=== PATIENT | female | born 1975 | race Hispanic/Latino ===

== ENCOUNTER 2017-10-03 13:50 | Emergency (ER) | payer BC ==
[2017-10-03 14:49] LABS: APPEARANCE,URINE CLOUDY (CLEAR); BILIRUBIN,URINE NEGATIVE (NEGATIVE); COLOR,URINE YELLOW (YELLOW); GLUCOSE, URINE (UA) NEGATIVE (NEGATIVE); KETONES,URINE 5 mg/dL (NEGATIVE); LEUKOCYTE ESTERASE ,URINE MODERATE (NEGATIVE); NITRATE,URINE POSITIVE (NEGATIVE); OCCULT BLOOD,URINE LARGE (NEGATIVE); PROTEIN,URINE >=300 (NEGATIVE)
[2017-10-03 14:57] LABS: BACTERIA,URINE Moderate /HPF (None Seen); WBC,URINE >100 /HPF (0-1)
[2017-10-03 14:58] LABS: RBC,URINE 26-50 /HPF (0-1)
[2017-10-03] MEDS ORDERED: CEFTRIAXONE SODIUM 1 GM ONE (15:16)
[2017-10-03] MEDS ORDERED: LIDOCAINE HCL-MPF 1% 2ML VIAL ONE (15:16)
== END 2017-10-03 15:24 | disposition home or self-care (01) ==
LOC: EDH 13:50
DX: N39.0 Urinary tract infection, site not specified (principal)
CPT/HCPCS: 81001; 96372; 99283; J0696; J3490

== ENCOUNTER 2021-12-27 09:46 | Observation (INO) | payer BC ==
[~2021-12-27] VITALS: Ht 162.6 cm; Wt 132.2 kg
[2021-12-27 10:22] LABS: BASOPHILS % (AUTO) 0.4 % (0.0-5.0); EOSINOPHILS % (AUTO) 2.1 % (0.0-8.0); HEMATOCRIT 41.7 % (36-48); LYMPHOCYTES % (AUTO) 24.2 % (21.0-51.0); MEAN CORPUSCULAR HEMOGLOBIN 28.6 pg (27.0-33.0); MEAN CORPUSCULAR HGB CONC 33.6 g/dL (32.0-36.0); MEAN CORPUSCULAR VOLUME 85.1 fL (79-99); NEUTROPHILS % (AUTO) 65.5 % (40.0-77.0); PLATELET COUNT (AUTO) 225 K/uL (130-400); RED CELL DISTRIBUTION WIDTH 12.9 % (11.0-15.5); WHITE BLOOD COUNT (AUTO) 7.7 K/uL (4.8-10.8)
[2021-12-27 10:31] LABS: CREATININE 0.6 mg/dL (0.5-1.5); POTASSIUM 3.9 mmol/L (3.5-5.1)
[2021-12-27 10:34] LABS: APPEARANCE,URINE CLEAR (CLEAR); BILIRUBIN,URINE NEGATIVE (NEGATIVE); COLOR,URINE YELLOW (YELLOW); GLUCOSE, URINE (UA) NEGATIVE (NEGATIVE); KETONES,URINE NEGATIVE (NEGATIVE); LEUKOCYTE ESTERASE ,URINE NEGATIVE (NEGATIVE); NITRATE,URINE NEGATIVE (NEGATIVE); OCCULT BLOOD,URINE NEGATIVE (NEGATIVE); PROTEIN,URINE NEGATIVE (NEGATIVE); UROBILINOGEN,URINE 0.2 mg/dL (0.2-1.0)
[2021-12-27 10:36] LABS: ALBUMIN 3.6 g/dL (3.5-5.0); BILIRUBIN,TOTAL 0.4 mg/dL (0.2-1.0); TOTAL PROTEIN, SERUM 7.2 g/dL (6.0-8.3)
[2021-12-27] MEDS ORDERED: IOHEXOL 350 MG/ML 100ML INFUS..BTL IV ONE (11:36)
[2021-12-27] MEDS ORDERED: NITROGLYCERIN 0.4 MG SL TAB SL PRN (15:30)
[2021-12-27] MEDS ORDERED: ASPIRIN 81MG CHEW TAB PO ONE (15:30)
[2021-12-27 16:06] LABS: HEMOGLOBIN A1C 5.5 % (4.0-6.0)
[2021-12-27] MEDS ORDERED: LEVETIRACETAM 500 MG TABLET PO ONE (20:48)
[2021-12-27] MEDS: LEVETIRACETAM 250 MG TABLET PO SCH (20:49)
[2021-12-27 23:30] VITALS: BP 124/79
[2021-12-28 04:34] LABS: BASOPHILS % (AUTO) 0.3 % (0.0-5.0); EOSINOPHILS % (AUTO) 3.2 % (0.0-8.0); HEMATOCRIT 39.6 % (36-48); LYMPHOCYTES % (AUTO) 22.4 % (21.0-51.0); MEAN CORPUSCULAR HEMOGLOBIN 28.5 pg (27.0-33.0); MEAN CORPUSCULAR HGB CONC 33.3 g/dL (32.0-36.0); MEAN CORPUSCULAR VOLUME 85.5 fL (79-99); MONOCYTES % (AUTO) 7.3 % (3.0-13.0); NEUTROPHILS % (AUTO) 65.8 % (40.0-77.0); PLATELET COUNT (AUTO) 202 K/uL (130-400); RED BLOOD CELL COUNT(AUTO) 4.63 MIL/uL (4.00-5.50)
[2021-12-28 04:35] VITALS: BP 129/71
[2021-12-28 04:58] LABS: CREATININE 0.6 mg/dL (0.5-1.5); POTASSIUM 3.7 mmol/L (3.5-5.1)
[2021-12-28 08:00] VITALS: BP 124/77
[2021-12-28] MEDS: LEVETIRACETAM 250 MG TABLET PO SCH ×2 (08:41→20:10)
[2021-12-28] MEDS ORDERED: ASPIRIN 81MG CHEW TAB PO SCH (09:00)
[2021-12-28 12:00] VITALS: BP 133/87
[2021-12-28] MEDS ORDERED: PANTOPRAZOLE 40 MG TAB DR PO SCH (14:00)
[2021-12-28 16:00] VITALS: BP 126/75
[2021-12-28] MEDS ORDERED: LEVE750T10 PO (19:17)
[2021-12-28] MEDS ORDERED: PANT20TA PO (19:17)
[2021-12-29] MEDS ORDERED: ENOXAPARIN SODIUM 40 MG/0.4 ML SYRINGE SQ SCH (20:00)
== END 2021-12-28 20:30 | disposition home or self-care (01) ==
LOC: EDH 09:46 → EDHIP 15:08 → 4BH 23:26
PROVIDERS: ADMIT Internal Medicine; ATTEND Internal Medicine
DX: R07.89 Other chest pain (principal); R20.0 Anesthesia of skin; E66.01 Morbid (severe) obesity due to excess calories; I10 Essential (primary) hypertension; G40.909 Epilepsy, unspecified, not intractable, without status epilepticus; G47.33 Obstructive sleep apnea (adult) (pediatric); E78.5 Hyperlipidemia, unspecified; Z90.710 Acquired absence of both cervix and uterus; Z68.43 Body mass index [BMI] 50.0-59.9, adult; Z79.899 Other long term (current) drug therapy
CPT/HCPCS: 36415 ×2; 70450; 70496; 70498; 71045; 80048; 80053; 80061; 81003; 81025; 82948 ×2; 83036; 83605; 84443; 84484 ×4; 85025 ×2; 85378; 93005; 93306; 93356; 93970; 97161; 99285; G0378 ×29; Q9967

== ENCOUNTER 2024-02-01 20:43 | Emergency (ER) | payer BC, OTHER ==
[~2024-02-01] VITALS: Ht 162.6 cm; Wt 127.0 kg
[~2024-02-01 20:43] MED LIST: LEVE750T10 PO; PANT20TA PO
[2024-02-01] MEDS: KETOROLAC 30MG VIAL (30MG/ML) IM ONE (23:22)
[2024-02-01] MEDS: ORPHENADRINE 60MG/2ML IM STA (23:23)
[2024-02-02] MEDS ORDERED: NAPR375T6 PO (00:06)
[2024-02-02] MEDS ORDERED: METH-662 PO (00:06)
[2024-02-02 00:10] VITALS: BP 142/76; PULSE 77; RESP 20; O2SAT 100
== END 2024-02-02 00:17 | disposition home or self-care (01) ==
LOC: EDH 20:43
DX: S46.011A Strain of muscle(s) and tendon(s) of the rotator cuff of right shoulder, initial encounter (principal); X58.XXXA Exposure to other specified factors, initial encounter; Y93.89 Activity, other specified; Y92.89 Other specified places as the place of occurrence of the external cause; Y99.8 Other external cause status
CPT/HCPCS: 99284; 81025; 96372 ×2; 93005; J1885; J2360